=== PATIENT | male | born 1945 | race Caucasian/White ===

== ENCOUNTER → 2020-01-15 10:28 | Outpatient (CLI) | payer MEDICARE, BC | END | disposition home or self-care (01) | LOC: D.LAB 10:28 | PROVIDERS: ATTEND Internal Medicine Pulmonary Disease | DX: Z11.59 Encounter for screening for other viral diseases (principal); J44.9 Chronic obstructive pulmonary disease, unspecified ==

== ENCOUNTER 2020-05-17 13:50 | Inpatient (IN) | payer MEDICARE, BC ==
[~2020-05-17] VITALS: Ht 177.8 cm; Wt 109.1 kg
[2020-05-17] MEDS ORDERED: SYNTHROID137 MCG PO (14:07)
[2020-05-17] MEDS ORDERED: BAYER CHEWABLE81 MG PO (14:08)
[2020-05-17] MEDS ORDERED: K-TAB10 MEQ PO (14:08)
[2020-05-17] MEDS ORDERED: DOLOPHINE HCL10 MG PO (14:09)
[2020-05-17] MEDS ORDERED: PREDNISONE10 MG PO (14:09)
[2020-05-17] MEDS ORDERED: KLONOPIN1 MG PO (14:10)
[2020-05-17] MEDS ORDERED: TRELEGY ELLIPT1 EACH INH (14:10)
[2020-05-17] MEDS ORDERED: HYDROCODON-ACE1 EA10 PO (14:11)
[2020-05-17] MEDS ORDERED: ALBUTEROL SULF8.5 GM INH (14:12)
[2020-05-17] MEDS ORDERED: VIBRAMYCIN 100100 MG PO (14:12)
[2020-05-17] MEDS ORDERED: LIPITOR40 MG PO (14:16)
[2020-05-17] MEDS ORDERED: OMEPRAZOLE40 MG PO (14:16)
[2020-05-17 14:20] LABS: BASOPHILS 0.1 % (0-2); EOSINOPHILS 0.4 % (0-7); HEMATOCRIT 39.1 % (42.0-54.0); HEMOGLOBIN 11.8 g/dL (13.5-17.5); IMMATURE GRANULOCYTES 0.2 % (0-5); LYMPHOCYTE ABS# 0.86 10x3/uL (1.32-3.57); LYMPHOCYTES 7.6 % (15-50); MCH 27.8 pg (26.0-34.0); MCHC 30.2 g/dL (31.0-37.0); MCV 92.2 fL (80.0-100.0); MEAN PLATELET VOLUME 9.3 fL (7.4-10.4); MONOCYTES 8.6 % (2-11); NEUTROPHIL ABS# 9.46 10x3/uL (1.78-5.38); NEUTROPHILS 83.1 % (40-80); PLATELET COUNT 185 10x3/uL (130-400); RBC 4.24 10x6/uL (4.20-6.10); RDW 16.4 % (11.5-14.5); WBC 11.4 10x3/uL (4.8-10.8)
[2020-05-17 14:31] LABS: CALC OSMOLALITY 271 mosm/kg (275-300); CALCIUM 8.8 mg/dL (8.5-10.1); CARBON DIOXIDE 32.4 mmol/L (21.0-32.0); CHLORIDE - SERUM 98 mmol/L (98-107); GLUCOSE 158 mg/dL (74-106); POTASSIUM - SERUM 4.2 mmol/L (3.5-5.1); SODIUM 135 mmol/L (136-145); UREA NITROGEN 11 mg/dL (7-18); eGFR NON AFRICAN AMERICAN 77 mL/min (90-120)
[2020-05-17 14:33] LABS: INR 1.2 (0.85-1.17); PROTIME 14.1 SECONDS (11.6-15.0)
[2020-05-17 14:34] LABS: APTT 78.4 SECONDS (22.8-39.4)
[2020-05-17 14:48] LABS: ALBUMIN 2.8 g/dL (3.4-5.0); ALKALINE PHOSPHATASE 70 U/L (30-120); ALT (SGPT) 17 U/L (10-68); BILIRUBIN - TOTAL 1.26 mg/dL (0.2-1.3); CKMB 0.1 U/L (0.0-3.6); CREATINE KINASE 52 UL (21-232); PRO BNP 1225 pg/mL (0-450); PROTEIN - SERUM 6.7 g/dL (6.4-8.2); TROPONIN-I < 0.017 ng/mL (0.000-0.060)
[2020-05-17 15:34] LABS: SARS-CoV-2 ANTIGEN NEGATIVE- SARS-COV-2 (NEGATIVE)
[2020-05-17] MEDS ORDERED: CYANOCOBAL1000 MCG/4 IM (16:56)
[2020-05-17 17:40] LABS: INFLUENZA TYPE A NEGATIVE (NEGATIVE); INFLUENZA TYPE B NEGATIVE (NEGATIVE)
[2020-05-17 18:23] VITALS: BP 160/57
[2020-05-17 19:50] LABS: BILIRUBIN NEGATIVE (NEGATIVE); KETONE NEGATIVE (NEGATIVE); NITRITE NEGATIVE (NEGATIVE); UROBILINOGEN NORMAL mg/dL (< 2)
[2020-05-17 20:06] VITALS: BP 110/63
[2020-05-17 20:30] VITALS: BP 123/59
--- NOTE | 2020-05-17 20:32 | NUR ---
REPORT TO FLOOR NURSE. NO QUESTIONS.
--- NOTE | 2020-05-17 21:06 | NUR ---
PATIENT TAKEN TO ROOM VIA STRETCHER AND TECH TRANSPORT. NAD NOTED AND PATIENT A&OX4. CARE TRANSFERRED AT THIS TIME.
--- NOTE | 2020-05-17 22:17 | NUR ---
PT TO ROOM FROM ER VIA BED. O2 INCREASED TO 5L HF TO MAINTAIN SATS ABOVE 90. PT DENIES NEEDS. NO ACUTE DISTRESS OBSERVED. FALL PRECUATIONS IN PLACE. CL IN REACH. WILL CPOC.
[2020-05-17 23:34] VITALS: BP 123/59; Ht 177.8 cm; Wt 109.1 kg
[2020-05-18 04:30] VITALS: BP 151/68
[2020-05-18 05:27] LABS: BASOPHILS 0 % (0-2); EOSINOPHILS 0 % (0-7); HEMATOCRIT 40.2 % (42.0-54.0); HEMOGLOBIN 12.3 g/dL (13.5-17.5); IMMATURE GRANULOCYTES 0.2 % (0-5); LYMPHOCYTE ABS# 0.84 10x3/uL (1.32-3.57); LYMPHOCYTES 9.7 % (15-50); MCH 27.5 pg (26.0-34.0); MCHC 30.6 g/dL (31.0-37.0); MCV 89.7 fL (80.0-100.0); MEAN PLATELET VOLUME 9.7 fL (7.4-10.4); NEUTROPHILS 88.1 % (40-80); PLATELET COUNT 196 10x3/uL (130-400); RBC 4.48 10x6/uL (4.20-6.10); RDW 16.3 % (11.5-14.5); WBC 8.6 10x3/uL (4.8-10.8)
[2020-05-18 05:32] LABS: ERYTHROCYTE SEDIMENTATION RATE 14 mm/hr (0-20)
[2020-05-18 05:55] LABS: ALBUMIN 3.1 g/dL (3.4-5.0); ANION GAP 13.8 mmol/L (8-16); BILIRUBIN - TOTAL 1.08 mg/dL (0.2-1.3); CALCIUM 9.3 mg/dL (8.5-10.1); CARBON DIOXIDE 28.4 mmol/L (21.0-32.0); CREATININE - SERUM 1.1 mg/dL (0.6-1.3); PHOSPHOROUS 3.4 mg/dL (2.5-4.9); POTASSIUM - SERUM 4.2 mmol/L (3.5-5.1); PROTEIN - SERUM 7.5 g/dL (6.4-8.2)
[2020-05-18 08:00] VITALS: BP 123/84
[2020-05-18 11:38] VITALS: BP 117/66
[2020-05-18 16:00] VITALS: BP 106/59
[2020-05-18 19:51] VITALS: BP 105/61
--- NOTE | 2020-05-19 02:30 | NUR ---
NEW 22G PIV LEFT FA/AC AREA. X1 ATTEMPT. PT TOLERATED WELL. TELEMETRY PLACED ON PT 62 SR, O2 AT 4L. SOB ON EXERTION. NO ACUTE DISTRESS OBSERVED. CL IN REAL. WILL CPOC.
[2020-05-19 04:59] VITALS: BP 117/67
--- NOTE | 2020-05-19 05:52 | NUR ---
PT NOW WITH INCREASED CONFUSION. TELEMETRY PULLED OFF. CONSTANTLY COMING OUT OF THE ROOM INTO THE ZIMMER.
[2020-05-19 08:00] VITALS: BP 125/77
[2020-05-19 08:40] LABS: BASOPHILS 0.2 % (0-2); EOSINOPHILS 0.2 % (0-7); HEMOGLOBIN 11.2 g/dL (13.5-17.5); IMMATURE GRANULOCYTES 0.2 % (0-5); LYMPHOCYTE ABS# 1.19 10x3/uL (1.32-3.57); LYMPHOCYTES 9.1 % (15-50); MCH 27.1 pg (26.0-34.0); MCHC 29.5 g/dL (31.0-37.0); MEAN PLATELET VOLUME 9.8 fL (7.4-10.4); MONOCYTES 9.3 % (2-11); NEUTROPHIL ABS# 10.65 10x3/uL (1.78-5.38); PLATELET COUNT 193 10x3/uL (130-400); RBC 4.13 10x6/uL (4.20-6.10); RDW 16.6 % (11.5-14.5)
[2020-05-19 08:46] LABS: WBC 13.1 10x3/uL (4.8-10.8)
[2020-05-19 09:02] LABS: CALC OSMOLALITY 277 mosm/kg (275-300); CARBON DIOXIDE 31.5 mmol/L (21.0-32.0); CHLORIDE - SERUM 101 mmol/L (98-107); CREATININE - SERUM 0.9 mg/dL (0.6-1.3); PHOSPHOROUS 3.7 mg/dL (2.5-4.9); POTASSIUM - SERUM 3.6 mmol/L (3.5-5.1); SODIUM 139 mmol/L (136-145); UREA NITROGEN 13 mg/dL (7-18); eGFR NON AFRICAN AMERICAN 87 mL/min (90-120)
[2020-05-19 09:03] LABS: GLUCOSE 100 mg/dL (74-106)
[2020-05-19 11:00] VITALS: BP 126/72
--- NOTE | 2020-05-19 13:09 | NUR ---
SPOKE WITH PTS WIIFE. PT IS ALERT AND ORIENTED WITH NOTED MOMENTS OF CONFUSION. TAKING ALL MEDS WITHOUT COMPLICATIONS NOTED. PT IS AMBULATING AROUND ROOM WITHOUT DIFFICULTY. CL IN REACH, SRX1. UPDATED ON CONDITION WELL INFORMING HER PT DOES HAVE BIPAP IN ROOM FOR HS AND PRN USE.
[2020-05-19 14:40] VITALS: BP 125/72
--- NOTE | 2020-05-19 15:45 | NUR ---
I have reviewed this patient and I concur with the Shift Assessment completed by the Licensed Practical Nurse today this shift.
--- NOTE | 2020-05-19 17:28 | NUR ---
PT ALERT AND ORIENTED, LYING IN BED EATING SUPPER. BIPAP SET UP IN ROOM BY R/T. NO COMPLAINTS OR CONCERNS AT THIS TIME. I/V SL. CL IN REACH, SRX2.
--- NOTE | 2020-05-19 19:15 | NUR ---
LYING IN BED AWAKE, ALERT, ORIENTED. REQUEST PAIN MEDS W/NIGHT TIME MEDICATIONS. DENIES ANY FURTHER NEEDS AT THIS TIME.
[2020-05-19 20:33] VITALS: BP 115/64
--- NOTE | 2020-05-19 20:37 | NUR ---
MEDS ADMINISTERED/ORDER ALONG W/MORPHINE FOR C/O PAIN SEE MAR. NO FURTHER NEEDS VOICED AT THIS TIME.
[2020-05-19 22:45] VITALS: BP 114/62
--- NOTE | 2020-05-20 05:23 | NUR ---
LYING IN BED AWAKE, ALERT, ORIENTED. AM MEDS ADMINISTERED/ORDER, PT REQUEST PAIN MED MORPHINE/ATIVAN ADMINISTERED AT THIS TIME/ORDER, PT TOLERATED ALL WELL. DENIES ANY FURTHER NEEDS AT THIS TIME.
[2020-05-20 06:51] LABS: BASOPHILS 0 % (0-2); EOSINOPHILS 0 % (0-7); HEMATOCRIT 35.7 % (42.0-54.0); HEMOGLOBIN 10.5 g/dL (13.5-17.5); IMMATURE GRANULOCYTES 0.4 % (0-5); LYMPHOCYTE ABS# 0.45 10x3/uL (1.32-3.57); LYMPHOCYTES 4.7 % (15-50); MCH 26.9 pg (26.0-34.0); MCHC 29.4 g/dL (31.0-37.0); MCV 91.5 fL (80.0-100.0); MEAN PLATELET VOLUME 9.6 fL (7.4-10.4); MONOCYTES 5.3 % (2-11); NEUTROPHIL ABS# 8.67 10x3/uL (1.78-5.38); NEUTROPHILS 89.6 % (40-80); PLATELET COUNT 189 10x3/uL (130-400); RDW 16.8 % (11.5-14.5)
[2020-05-20 06:55] LABS: WBC 9.7 10x3/uL (4.8-10.8)
[2020-05-20 07:21] LABS: CALCIUM 8.5 mg/dL (8.5-10.1); CARBON DIOXIDE 32.6 mmol/L (21.0-32.0); CHLORIDE - SERUM 102 mmol/L (98-107); CREATININE - SERUM 0.9 mg/dL (0.6-1.3); PHOSPHOROUS 3.5 mg/dL (2.5-4.9); SODIUM 140 mmol/L (136-145); eGFR NON AFRICAN AMERICAN 87 mL/min (90-120)
[2020-05-20 07:23] LABS: CALC OSMOLALITY 284 mosm/kg (275-300); GLUCOSE 166 mg/dL (74-106); POTASSIUM - SERUM 4.5 mmol/L (3.5-5.1); UREA NITROGEN 18 mg/dL (7-18)
[2020-05-20 09:29] VITALS: BP 114/56
[2020-05-20 13:02] VITALS: BP 105/84
--- NOTE | 2020-05-20 14:22 | NUR ---
I have reviewed this patient and I concur with the Shift Assessment completed by the Licensed Practical Nurse today this shift.
[2020-05-20 16:08] VITALS: BP 109/66
--- NOTE | 2020-05-20 16:18 | NUR ---
PATIENT WALKED AROUND ROOM WITH SBA FOR 25 FEET.
--- NOTE | 2020-05-20 17:53 | NUR ---
PT RESTING IN BED WITH EYES OPEN CALL LIGHT IN REACH WILL MONITER
--- NOTE | 2020-05-20 19:12 | NUR ---
LYING IN BED W/EYES CLOSED, AROUSES EASILY TO VERBAL STIMULI. RESP EVEN AND UNLABORED W/02 INPROGRESS/ORDER. NO DISTRESS NOTED, PT REQUEST MEDICATION FOR CONSIPATION, WILL CALL THE
--- NOTE | 2020-05-20 20:15 | NUR ---
CONTACTED RENITA PEDERSEN NEW ORDER FOR MIRALEX 17GMS NOW AND THEN DAILY
--- NOTE | 2020-05-20 20:52 | NUR ---
MEDS ADMINISTERED/ORDER W/ATIVAN FOR ANXIETY. PT TOLERATED ALL WELL. NO DISTRESS NOTED.
[2020-05-20 21:50] VITALS: BP 122/50
[2020-05-21 01:48] VITALS: BP 110/55
[2020-05-21 04:28] VITALS: BP 109/53
--- NOTE | 2020-05-21 05:15 | NUR ---
SITTING UP TO SIDE OF BED AWAKE, ALERT, ORIENTED DRINKING COFFEE. AM MEDS ADMINISTERED/ORDER, PT TOLERATED ALL WELL. NO DISTRESS NOTED. NO FURTHER NEEDS VOICED AT THIS TIME.
[2020-05-21 06:38] LABS: BASOPHILS 0 % (0-2); EOSINOPHILS 0 % (0-7); HEMATOCRIT 37.7 % (42.0-54.0); HEMOGLOBIN 11.3 g/dL (13.5-17.5); IMMATURE GRANULOCYTES 0.4 % (0-5); LYMPHOCYTE ABS# 0.98 10x3/uL (1.32-3.57); LYMPHOCYTES 6.9 % (15-50); MCV 93.3 fL (80.0-100.0); MEAN PLATELET VOLUME 9.7 fL (7.4-10.4); MONOCYTES 5.7 % (2-11); NEUTROPHIL ABS# 12.34 10x3/uL (1.78-5.38); RBC 4.04 10x6/uL (4.20-6.10); RDW 16.9 % (11.5-14.5)
[2020-05-21 06:40] LABS: WBC 14.2 10x3/uL (4.8-10.8)
[2020-05-21 06:41] LABS: PLATELET COUNT 249 10x3/uL (130-400)
[2020-05-21 06:57] LABS: CALCIUM 8.9 mg/dL (8.5-10.1); CARBON DIOXIDE 31.6 mmol/L (21.0-32.0); CHLORIDE - SERUM 101 mmol/L (98-107); MAGNESIUM - SERUM 2.1 mg/dL (1.8-2.4); PHOSPHOROUS 3.8 mg/dL (2.5-4.9); SODIUM 139 mmol/L (136-145); UREA NITROGEN 18 mg/dL (7-18); eGFR NON AFRICAN AMERICAN 77 mL/min (90-120)
[2020-05-21 06:58] LABS: CALC OSMOLALITY 280 mosm/kg (275-300); GLUCOSE 115 mg/dL (74-106); POTASSIUM - SERUM 3.6 mmol/L (3.5-5.1)
--- NOTE | 2020-05-21 07:43 | MORECARE ---
CASE MANAGEMENT DISCHARGE SUMMARY PATIENT: VILLA MADISON UNIT: [id number] ADM DATE: 05/17/20 AGE: 75 : 43 SEX: M ROOM/BED: D.2137 AUTHOR: JOSE CARLOS ROMEO PHYSICIAN: REFERRING PHYSICIAN: HELEN CHIU MD DATE OF SERVICE: 05/21/20 Discharge Plan Patient Name: VILLA MADISON Facility: [facility]:[place] : 1945 Planned Disposition: Home Anticipated Discharge Date: Discharge Date: Expected LOS: Initial Reviewer: [email or web address] Initial Review Date: 05/21/2020 Generated: 05/21/20 8:42 am DCPIA - Discharge Planning Initial Assessment Updated by [email or web address]: Jaqui Kc on 05/21/20 7:41 am * Is the patient Alert and Oriented? Yes * How many steps to enter\exit or inside your home? 2/0 * PCP Dr. Clay Burns * Pharmacy [facility] on [address] * Preadmission Environment Home with Family * ADLs Partial Dependent * Partial ADLs (Assistance needed) Medication Management * Equipment Cane Nebulizer Other Oxygen Walker * Other Equipment Portable oxygen * List name and contact numbers for known caregivers / representatives who currently or will assist patient after discharge: Sulema Madison - spouse - [phone] * Verbal permission to speak to the caregivers and representatives has been obtained from the patient. Yes * Community resources currently utilized None * Please name any agencies selected above. ?[facility] for oxygen and portable oxygen * Additional services required to return to the preadmission environment? No * Can the patient safely return to the preadmission environment? Yes * Has this patient been hospitalized within the prior 30 days at any hospital? No Coverage Notice Reviewer: [id number] - Jaqui Kc Notice Issued Date-Time: 05/21/2020 7:38 Notice Type: IM Discharge Notice Notice Delivered To: Patient Relationship to Patient: Self All Around Presser Name: Delivery Method: PHONE - Phone Puja Days: Prior Verbal Notification: Recipient Understood Notice: Yes Recipient Signature: Med Rec Note Co-signed by Attending: Coverage Notice Comment: IMM explained, signed, given, copy placed in MR Patient Name: VILLA MADISON Page [id number] at 0743 All edits/amendments must be made on the electronic document DICTATION DATE: 05/21/20741 DISPENSING LEAD: SAMANTHA 05/21/20741 RPT#: [id number] DC DATE: STATUS: ADM IN [facility] [address] [place] [address] END OF REPORT
--- NOTE | 2020-05-21 07:51 | MORECARE ---
CASE MANAGEMENT DISCHARGE SUMMARY PATIENT: VILLA MADISON UNIT: [id number] ADM DATE: 05/17/20 AGE: 75 : 43 SEX: M ROOM/BED: D.2137 AUTHOR: JOSE CARLOS ROMEO PHYSICIAN: REFERRING PHYSICIAN: HELEN CHIU MD DATE OF SERVICE: 05/21/20 Discharge Plan Patient Name: VILLA MADISON Facility: [facility]:[place] : 1945 Planned Disposition: Home Anticipated Discharge Date: Discharge Date: Expected LOS: Initial Reviewer: [email or web address] Initial Review Date: 05/21/2020 Generated: 05/21/20 8:50 am Comments DCP- Discharge Planning Updated by [email or web address]: Jaqui Kc on 05/21/20 6:[address] Patient Name: VILLA MADISON Admission Status: ER Accout number: [id number] Admission Date: 05-17-2020 : 1945 Admission Diagnosis:SHORTNESS OF BREATH Attending: HELEN HEALY Current LOS: 4 Anticipated DC Date: Planned Disposition: Home Primary Insurance: MEDICARE A & B Discharge Planning Comments: CM called patient to complete initial dc planning assessment per Covid Isolation protocol. CM educated patient on the CM role and verbal consent given by patient to complete assessment. CM verified patient's address, phone number, and emergency contact phone numbers. Patient lives at home with his spouse. At discharge patient plans to return and feels this is a safe discharge. CM discussed availability of home health, rehab services, and medical equipment. Patient denied known discharge needs at this time. Transportation provider at discharge will be his spouse. He states he already has oxygen and portable and he believes [facility] is his provider. I did explain if he changed his mind about home health once he was at home to call his PCP. IMM explained over the phone, given by nurse and copy placed in MR. CM will continue to follow and will assist as needed with dc plans/needs. Machine Tool Dresser: Jaqui Kc DCPIA - Discharge Planning Initial Assessment Updated by [email or web address]: Jaqui Kc on 05/21/20 7:41 am * Is the patient Alert and Oriented? Yes * How many steps to enter\exit or inside your home? 2/0 * PCP Dr. Clay Burns * Pharmacy [facility] at [facility] on [address] * Preadmission Environment Home with Family * ADLs Partial Dependent * Partial ADLs (Assistance needed) Medication Management * Equipment Cane Nebulizer Other Oxygen Walker * Other Equipment Portable oxygen * List name and contact numbers for known caregivers / representatives who currently or will assist patient after discharge: Sulema Madison - [facility] - [phone] * Verbal permission to speak to the caregivers and representatives has been obtained from the patient. Yes * Community resources currently utilized None * Please name any agencies selected above. ?[facility] for oxygen and portable oxygen * Additional services required to return to the preadmission environment? No * Can the patient safely return to the preadmission environment? Yes * Has this patient been hospitalized within the prior 30 days at any hospital? No Coverage Notice Reviewer: [id number] Cuauhtemoc Kc Notice Issued Date-Time: 05/21/2020 7:38 Notice Type: IM Discharge Notice Notice Delivered To: Patient Relationship to Patient: Self [facility] Name: Delivery Method: PHONE - Phone Puja Days: Prior Verbal Notification: Recipient Understood Notice: Yes Recipient Signature: Med Rec Note Co-signed by Attending: Coverage Notice Comment: IMM explained, signed, given, copy placed in MR Last DP export: 05/21/20 6:43 a Patient Name: VILLA MADISON Page [phone] at 0751 All edits/amendments must be made on the electronic document DICTATION DATE: 05/21/20749 PRESSING MACHINE TENDER: SAMANTHA 05/21/20 075 RPT#: [id number] DC DATE: STATUS: ADM IN [facility] [address] [place] [address] END OF REPORT
--- NOTE | 2020-05-21 08:28 | NUR ---
AM MEDS GIVEN AT THIS TIME. PT SITTING ON SIDE OF BED WITH FEET ON FLOOR. PRN TYLENOL GIVEN FOR BACK PAIN. NO FURTHER NEEDS VOICED AT THIS TIME. RR EVEN NON LABORED, O2 IN PLACE VIA NC. CLWR.
[2020-05-21 09:00] VITALS: BP 130/70
--- NOTE | 2020-05-21 09:57 | NUR ---
SCHEDULED MEDICATIONS GIVEN AT THIS TIME. PT LYING IN BED WITH HOB RAISED WITH O2 IN PLACE. PT CALM, APPROP. NO NEEDS VOICED. CLWR.
[2020-05-21] MEDS ORDERED: FEXOFENADINE HC60 MG PO (12:46)
[2020-05-21] MEDS ORDERED: MUCINEX600 MG PO (12:47)
[2020-05-21] MEDS ORDERED: DULERA 200 MCG8.8 GM INH (12:47)
[2020-05-21] MEDS ORDERED: SINGULAIR10 MG PO (12:47)
[2020-05-21] MEDS ORDERED: DALIRESP250 MCG PO (12:47)
[2020-05-21] MEDS ORDERED: OMNICEF300 MG PO (12:48)
--- NOTE | 2020-05-21 13:34 | NUR ---
D/C INSTRUCTIONS GIVEN AT THIS TIME INCLUDING MEDICATIONS AND FOLLOW UP APPOINTMENTS ALONG WITH PT EDUCATION. PT STATES UNDERSTANDING. PT IN ROUTE TO MEDICATION TECH PT FOR TRANSPORTATION. PT INSTRUCTED TO USE CALL LIGHT WHEN ARRIVES. PT STATES UNDERSTANDING. CLWR.
--- NOTE | 2020-05-21 14:03 | NUR ---
PT WHEELED TO PRIVATE VEHICLE WITH ALL BELONGINGS AT THIS TIME. PORTABLE O2 IN PLACE PER HOME O2. PT RR EVEN NON LABORED. NO DISTRESS NOTED ON DEPARTURE.
--- NOTE | 2020-05-22 09:20 | MORECARE ---
CASE MANAGEMENT DISCHARGE SUMMARY PATIENT: VILLA MADISON UNIT: [id number] ADM DATE: 05/17/20 AGE: 75 : 43 SEX: M ROOM/BED: D.1630 AUTHOR: JOSE CARLOS ROMEO PHYSICIAN: REFERRING PHYSICIAN: HELEN CHIU MD DATE OF SERVICE: 05/22/20 Discharge Plan Patient Name: VILLA MADISON Facility: [facility]:[place] : 1945 Planned Disposition: Home Anticipated Discharge Date: Discharge Date: 05/21/2020 Expected LOS: Initial Reviewer: [email or web address] Initial Review Date: 05/21/2020 Generated: 05/22/20 10:19 am Comments DCP- Discharge Planning Updated by [email or web address]: Jaqui Kc on 05/21/20 6:[address] Patient Name: VILLA MADISON Admission Status: ER Accout number: [id number] Admission Date: 05-17-2020 : 1945 Admission Diagnosis:SHORTNESS OF BREATH Attending: HELEN HEALY Current LOS: 4 Anticipated DC Date: Planned Disposition: Home Primary Insurance: MEDICARE A & B Discharge Planning Comments: CM called patient to complete initial dc planning assessment per Covga Isolation protocol. CM educated patient on the CM role and verbal consent given by patient to complete assessment. CM verified patient's address, phone number, and emergency contact phone numbers. Patient lives at home with his spouse. At discharge patient plans to return and feels this is a safe discharge. CM discussed availability of home health, rehab services, and medical equipment. Patient denied known discharge needs at this time. Transportation provider at discharge will be his spouse. He states he already has oxygen and portable and he believes [facility] is his provider. I did explain if he changed his mind about home health once he was at home to call his PCP. IMM explained over the phone, given by nurse and copy placed in MR. CM will continue to follow and will assist as needed with dc plans/needs. Web Developer Programmer: Jaqui Kc DCPIA - Discharge Planning Initial Assessment Updated by [email or web address]: Jaqui Kc on 05/21/20 7:41 am * Is the patient Alert and Oriented? Yes * How many steps to enter\exit or inside your home? 2/0 * PCP Dr. Clay Burns * Pharmacy [facility] on [address] * Preadmission Environment Home with Family * ADLs Partial Dependent * Partial ADLs (Assistance needed) Medication Management * Equipment Cane Nebulizer Other Oxygen Walker * Other Equipment Portable oxygen * List name and contact numbers for known caregivers / representatives who currently or will assist patient after discharge: Sulema Madison - [facility] - [phone] * Verbal permission to speak to the caregivers and representatives has been obtained from the patient. Yes * Community resources currently utilized None * Please name any agencies selected above. ?[facility] for oxygen and portable oxygen * Additional services required to return to the preadmission environment? No * Can the patient safely return to the preadmission environment? Yes * Has this patient been hospitalized within the prior 30 days at any hospital? No Coverage Notice Reviewer: [id number] Cuauhtemoc Kc Notice Issued Date-Time: 05/21/2020 7:38 Notice Type: IM Discharge Notice Notice Delivered To: Patient Relationship to Patient: Self Wreath Machine Tender Name: Delivery Method: PHONE - Phone Puja Days: Prior Verbal Notification: Recipient Understood Notice: Yes Recipient Signature: Med Rec Note Co-signed by Attending: Coverage Notice Comment: IMM explained, signed, given, copy placed in MR Last DP export: 05/21/20 6:51 a Patient Name: VILLA MADISON Page [phone] at 0920 All edits/amendments must be made on the electronic document DICTATION DATE: 05/22/20918 WREATH MACHINE TENDER: SAMANTHA 05/22/20918 RPT#: [id number] DC DATE:05/21/20 STATUS: DIS IN [facility] [address] [place] [address] END OF REPORT
== END 2020-05-21 14:03 | disposition home or self-care (01) | DRG 190 ==
LOC: D.ER 13:50 → D.EDHOLD 16:57 → D.M2 16:57
PROVIDERS: Family Medicine; ADMIT Family Medicine; ATTEND Family Medicine
PROC: 5A09457 Assistance with Respiratory Ventilation, 24-96 Consecutive Hours, Continuous Positive Airway Pressure (ICD-10-PCS; principal; 2020-05-19)
DX: J47.1 Bronchiectasis with (acute) exacerbation (principal); J96.21 Acute and chronic respiratory failure with hypoxia; J96.22 Acute and chronic respiratory failure with hypercapnia; J15.6 Pneumonia due to other Gram-negative bacteria; J47.0 Bronchiectasis with acute lower respiratory infection; D64.9 Anemia, unspecified; E03.9 Hypothyroidism, unspecified; K21.9 Gastro-esophageal reflux disease without esophagitis; I10 Essential (primary) hypertension; I25.10 Atherosclerotic heart disease of native coronary artery without angina pectoris; E78.5 Hyperlipidemia, unspecified; Z85.118 Personal history of other malignant neoplasm of bronchus and lung; Z87.891 Personal history of nicotine dependence; Z86.73 Personal history of transient ischemic attack (TIA), and cerebral infarction without residual deficits

== ENCOUNTER → 2020-09-02 10:53 | Outpatient (CLI) | payer MEDICARE, BC ==
[~2020-09-02 10:53] MED LIST: ALBUTEROL SULF8.5 GM INH; BAYER CHEWABLE81 MG PO; CYANOCOBAL1000 MCG/4 IM; DALIRESP250 MCG PO; DOLOPHINE HCL10 MG PO; DULERA 200 MCG8.8 GM INH; FEXOFENADINE HC60 MG PO; HYDROCODON-ACE1 EA10 PO; K-TAB10 MEQ PO; KLONOPIN1 MG PO; LIPITOR40 MG PO; MUCINEX600 MG PO; OMEPRAZOLE40 MG PO; OMNICEF300 MG PO; PREDNISONE10 MG PO; SINGULAIR10 MG PO; SYNTHROID137 MCG PO; TRELEGY ELLIPT1 EACH INH; VIBRAMYCIN 100100 MG PO
== END | disposition home or self-care (01) ==
LOC: D.LAB 10:53
PROVIDERS: ATTEND Internal Medicine Pulmonary Disease
DX: Z11.52 Encounter for screening for COVID-19 (principal)

== ENCOUNTER → 2020-09-05 11:56 | Outpatient (CLI) | payer MEDICARE, BC ==
--- NOTE | 2020-09-05 13:26 | NUR ---
PT CAME TO ME FOR PFT/WALK TEST. HE REPORTED TO ME THAT HE HAD HAD A TEMPERATURE OF 101.4 LAST NIGHT. SPOKE WITH HOLLEY REINOSO, ABOUT THIS AND WE SENT HIM FOR HIS CXR AND WILL RESCHEDULE HIS PFT/WALK TEST FOR A LATER TIME.
== END | disposition home or self-care (01) ==
LOC: D.RT 11:56
PROVIDERS: ATTEND Internal Medicine Pulmonary Disease
DX: J96.11 Chronic respiratory failure with hypoxia (principal)

== ENCOUNTER → 2020-09-08 18:06 | Outpatient (CLI) | payer MEDICARE, BC | END | disposition home or self-care (01) | LOC: D.LABREF 18:06 | PROVIDERS: ATTEND Internal Medicine Pulmonary Disease | DX: J44.1 Chronic obstructive pulmonary disease with (acute) exacerbation (principal) ==